=== PATIENT | male | born 1970 | race African-American/Black ===

== ENCOUNTER 2017-05-10 08:05 | Inpatient (IN) | payer MEDICAID, OTHER ==
[2017-05-10] MEDS: SOD CHLORIDE 0.9% 1,000 ML IV (08:40)
[2017-05-10 08:58] LABS: ADD MAN DIFF? NO
[2017-05-10 09:11] LABS: WHITE BLOOD COUNT 4.2 10^3/ul (4.8-10.8)
[2017-05-10 09:11] LABS: BASOPHILS % 0.5 % (0.0-2.0); EOSINOPHILS # 0.1 10^3/ul (0.0-0.5); EOSINOPHILS % 2.1 % (0.0-7.0); HEMATOCRIT 31.2 % (42.0-52.0); HEMOGLOBIN 10.8 g/dl (14.0-18.0); LYMPHOCYTES # 0.8 10^3/ul (0.8-2.9); LYMPHOCYTES % 19.5 % (15.0-51.0); MEAN CORPUSCULAR HEMOGLOBIN 25.2 pg (29.0-33.0); MEAN CORPUSCULAR HGB CONC 34.6 g/dl (32.0-37.0); MEAN CORPUSCULAR VOLUME 72.9 fl (82.0-101.0); MEAN PLATELET VOLUME 10.1 fl (7.4-10.4); MONOCYTE # 0.5 10^3/ul (0.3-0.9); MONOCYTES % 12.1 % (0.0-11.0); NEUTROPHIL # 2.7 10^3/ul (1.6-7.5); NEUTROPHILS % 65.1 % (39.0-77.0); PLATELET COUNT 361 10^3/UL (140-415); RED BLOOD COUNT 4.28 10^6/ul (4.70-6.10); RED CELL DISTRIBUTION WIDTH 13.7 % (11.5-14.5)
[2017-05-10 09:26] LABS: INR 1.08; PROTIME 14.1 Sec (11.9-14.9); PT RATIO 1.1
[2017-05-10 09:27] LABS: PARTIAL THROMBOPLASTIN TIME 29.6 Sec (25.0-35.0)
[2017-05-10 09:31] LABS: ALANINE AMINOTRANSFERASE 32 IU/L (13-69); ALBUMIN 3.5 g/dl (3.3-4.9); ALBUMIN/GLOBULIN RATIO 0.66; ALKALINE PHOSPHATASE 134 IU/L (42-121); ANION GAP 13 (8-16); ASPARTATE AMINO TRANSFERASE 52 IU/L (15-46); BILIRUBIN,INDIRECT 0.2 mg/dl (0-1.1); BILIRUBIN,TOTAL 0.2 mg/dl (0.2-1.3); BLOOD UREA NITROGEN 9 mg/dl (7-20); CALCIUM 8.6 mg/dl (8.4-10.2); CARBON DIOXIDE 26 mmol/L (21-31); CHLORIDE 98 mmol/L (97-110); CREATININE 0.66 mg/dl (0.61-1.24); GLUCOSE 93 mg/dl (70-220); POTASSIUM 5.5 mmol/L (3.5-5.1); SODIUM 131 mmol/L (135-144); TOTAL PROTEIN 8.8 g/dl (6.1-8.1)
[2017-05-10 09:41] LABS: B-TYPE NATRIURETIC PEPTIDE 150 PG/ML (0-125)
[2017-05-10 09:45] LABS: TROPONIN-I < 0.012 ng/ml (0.00-0.12)
[2017-05-10 10:07] LABS: D-DIMER 2471.15 ng/ml (<460)
[2017-05-10 10:29] LABS: ADD UMIC NO; UR ASCORBIC ACID 40 mg/dL (NEGATIVE); UR BILIRUBIN (Dip) NEGATIVE (NEGATIVE); UR BLOOD (Dip) NEGATIVE (NEGATIVE); UR CLARITY CLEAR (CLEAR); UR COLOR YELLOW (YELLOW); UR GLUCOSE (Dip) NEGATIVE (NEGATIVE); UR KETONES (Dip) NEGATIVE (NEGATIVE); UR LEUKOCYTE ESTERASE (Dip) NEGATIVE Leu/ul (NEGATIVE); UR NITRITE (Dip) NEGATIVE (NEGATIVE); UR SPECIFIC GRAVITY (Dip) 1.019 (1.003-1.030); UR TOTAL PROTEIN (Dip) NEGATIVE (NEGATIVE); UR UROBILINOGEN (Dip) 1+ mg/dL (NEGATIVE)
[2017-05-10] MEDS: SOD CHLORIDE 0.9% 100 ML (11:00)
[2017-05-10] MEDS: IOHEXOL 100 ML (11:00)
[2017-05-10 11:16] LABS: ALANINE AMINOTRANSFERASE 36 IU/L (13-69); ALBUMIN 3.1 g/dl (3.3-4.9); ALBUMIN/GLOBULIN RATIO 0.65; ALKALINE PHOSPHATASE 146 IU/L (42-121); ANION GAP 10 (8-16); ASPARTATE AMINO TRANSFERASE 50 IU/L (15-46); BILIRUBIN,INDIRECT 0.1 mg/dl (0-1.1); BILIRUBIN,TOTAL 0.1 mg/dl (0.2-1.3); BLOOD UREA NITROGEN 8 mg/dl (7-20); CALCIUM 8.3 mg/dl (8.4-10.2); CARBON DIOXIDE 24 mmol/L (21-31); CHLORIDE 102 mmol/L (97-110); CREATININE 0.62 mg/dl (0.61-1.24); GLUCOSE 91 mg/dl (70-220); POTASSIUM 4.5 mmol/L (3.5-5.1); TOTAL PROTEIN 7.8 g/dl (6.1-8.1)
[2017-05-10 11:19] LABS: SODIUM 131 mmol/L (135-144)
[2017-05-10] MEDS: CEFTRIAXONE 1 GM/50 ML (PMX) 50 ML IVPB (11:39)
[2017-05-10] MEDS: AZITHROMYCIN 500MG/NS (PMX) 250 ML IVPB (12:28)
[2017-05-10] MEDS ORDERED: ONDANSETRON 4 MG INJ IV ×2 (12:30→13:30)
[2017-05-10] MEDS ORDERED: ACETAMINOPHEN 325 MG TAB PO (12:30)
[2017-05-10] MEDS ORDERED: VANCOMYCIN IV PER PHARMACY XX (13:30)
[2017-05-10] MEDS ORDERED: LABETALOL HCL 20MG INJ IV (13:30)
[2017-05-10] MEDS ORDERED: ALBUTEROL/IPRATROPIUM (NEB) 3 ML AMP HHN (13:30)
[2017-05-10] MEDS ORDERED: BISACODYL (EC) 5 MG TAB PO (13:30)
[2017-05-10] MEDS ORDERED: NACL 0.9% 3 ML SYG IV (13:30)
[2017-05-10] MEDS ORDERED: LORAZEPAM 0.5 MG TAB PO (13:30)
[2017-05-10] MEDS ORDERED: morphine 2 MG INJ IV (13:30)
[2017-05-10] MEDS: ALBUTEROL/IPRATROPIUM (NEB) 3 ML AMP HHN ×2 (14:00→20:57)
[2017-05-10] MEDS: VANCOMYCIN 1.5 GM in DEXTROSE 5% 500 ML IVPB (15:54)
[2017-05-10 17:29] LABS: LACTIC ACID 1.2 mmol/L (0.5-2.0)
[2017-05-10 17:30] LABS: POTASSIUM 4.2 mmol/L (3.5-5.1)
[2017-05-10] MEDS: SOD CHLORIDE 0.45% 1,000 ML IV (17:56)
[2017-05-10] MEDS: PIPER-TAZO 3.375 GM IV (PMX) 100 ML IVPB ×2 (18:07→23:38)
[2017-05-10] MEDS: FAMOTIDINE 20 MG INJ IV (20:52)
[2017-05-11] MEDS: VANCOMYCIN 1.25 GM in SOD CHLORIDE 0.45% 250 ML IVPB ×2 (04:31→16:58)
[2017-05-11 06:01] LABS: ADD MAN DIFF? NO
[2017-05-11 06:03] LABS: WHITE BLOOD COUNT 4.1 10^3/ul (4.8-10.8)
[2017-05-11 06:03] LABS: BASOPHILS % 0.5 % (0.0-2.0); EOSINOPHILS # 0.1 10^3/ul (0.0-0.5); EOSINOPHILS % 1.5 % (0.0-7.0); HEMATOCRIT 31.4 % (42.0-52.0); HEMOGLOBIN 11.1 g/dl (14.0-18.0); LYMPHOCYTES # 0.9 10^3/ul (0.8-2.9); LYMPHOCYTES % 20.8 % (15.0-51.0); MEAN CORPUSCULAR HEMOGLOBIN 25.6 pg (29.0-33.0); MEAN CORPUSCULAR HGB CONC 35.4 g/dl (32.0-37.0); MEAN CORPUSCULAR VOLUME 72.4 fl (82.0-101.0); MEAN PLATELET VOLUME 9.5 fl (7.4-10.4); MONOCYTE # 0.5 10^3/ul (0.3-0.9); NEUTROPHIL # 2.6 10^3/ul (1.6-7.5); PLATELET COUNT 410 10^3/UL (140-415); RED BLOOD COUNT 4.34 10^6/ul (4.70-6.10); RED CELL DISTRIBUTION WIDTH 13.4 % (11.5-14.5)
[2017-05-11 06:36] LABS: ALANINE AMINOTRANSFERASE 35 IU/L (13-69); ALBUMIN/GLOBULIN RATIO 0.62; ALKALINE PHOSPHATASE 139 IU/L (42-121); ANION GAP 12 (8-16); ASPARTATE AMINO TRANSFERASE 34 IU/L (15-46); BILIRUBIN,INDIRECT 0.1 mg/dl (0-1.1); BILIRUBIN,TOTAL 0.1 mg/dl (0.2-1.3); BLOOD UREA NITROGEN 9 mg/dl (7-20); CALCIUM 8.2 mg/dl (8.4-10.2); CARBON DIOXIDE 25 mmol/L (21-31); CHLORIDE 99 mmol/L (97-110); CREATININE 0.81 mg/dl (0.61-1.24); GLUCOSE 93 mg/dl (70-220); MAGNESIUM 1.8 mg/dl (1.7-2.5); POTASSIUM 4.2 mmol/L (3.5-5.1); SODIUM 132 mmol/L (135-144); TOTAL PROTEIN 7.8 g/dl (6.1-8.1)
[2017-05-11] MEDS: PIPER-TAZO 3.375 GM IV (PMX) 100 ML IVPB ×4 (07:39→23:54)
[2017-05-11] MEDS: FAMOTIDINE 20 MG INJ IV ×2 (08:32→20:40)
[2017-05-11] MEDS: ALBUTEROL/IPRATROPIUM (NEB) 3 ML AMP HHN ×3 (09:27→19:53)
[2017-05-11] MEDS: ACETAMINOPHEN 325 MG TAB PO (15:34)
[2017-05-11] MEDS: LEVOFLOXACIN 500MG/D5W (PMX) 100 ML IVPB (18:00)
[2017-05-12 03:52] LABS: ADD MAN DIFF? NO
[2017-05-12] MEDS: VANCOMYCIN 1.25 GM in SOD CHLORIDE 0.45% 250 ML IVPB (04:02)
[2017-05-12 04:04] LABS: WHITE BLOOD COUNT 3.6 10^3/ul (4.8-10.8)
[2017-05-12 04:04] LABS: ABNORMAL IP MESSAGE 1; BASOPHILS % 0.6 % (0.0-2.0); EOSINOPHILS # 0.1 10^3/ul (0.0-0.5); EOSINOPHILS % 1.9 % (0.0-7.0); HEMATOCRIT 29.4 % (42.0-52.0); HEMOGLOBIN 10.4 g/dl (14.0-18.0); LYMPHOCYTES # 0.6 10^3/ul (0.8-2.9); LYMPHOCYTES % 16.3 % (15.0-51.0); MEAN CORPUSCULAR HEMOGLOBIN 25.3 pg (29.0-33.0); MEAN CORPUSCULAR HGB CONC 35.4 g/dl (32.0-37.0); MEAN CORPUSCULAR VOLUME 71.5 fl (82.0-101.0); MEAN PLATELET VOLUME 9.6 fl (7.4-10.4); MONOCYTE # 0.5 10^3/ul (0.3-0.9); MONOCYTES % 13.3 % (0.0-11.0); NEUTROPHIL # 2.4 10^3/ul (1.6-7.5); NEUTROPHILS % 67.1 % (39.0-77.0); PLATELET COUNT 415 10^3/UL (140-415); POSITIVE DIFF @See below; RED BLOOD COUNT 4.11 10^6/ul (4.70-6.10); RED CELL DISTRIBUTION WIDTH 13.9 % (11.5-14.5)
[2017-05-12] MEDS: HYDROCODONE/APAP (5/325) TAB PO ×3 (04:09→12:03)
[2017-05-12 04:22] LABS: ANION GAP 10 (8-16); BLOOD UREA NITROGEN 6 mg/dl (7-20); CALCIUM 8.2 mg/dl (8.4-10.2); CARBON DIOXIDE 28 mmol/L (21-31); CHLORIDE 99 mmol/L (97-110); CREATININE 0.78 mg/dl (0.61-1.24); GLUCOSE 118 mg/dl (70-220); POTASSIUM 3.9 mmol/L (3.5-5.1); SODIUM 133 mmol/L (135-144)
[2017-05-12 04:26] LABS: VANCOMYCIN,TROUGH 10.6 ug/ml (10.0-20.0)
[2017-05-12] MEDS: ALBUTEROL/IPRATROPIUM (NEB) 3 ML AMP HHN ×3 (07:40→20:58)
[2017-05-12] MEDS: FAMOTIDINE 20 MG INJ IV (09:00)
[2017-05-12] MEDS: PIPER-TAZO 3.375 GM IV (PMX) 100 ML IVPB ×2 (12:04→18:00)
[2017-05-12] MEDS: VANCOMYCIN 1.5 GM in DEXTROSE 5% 500 ML IVPB (18:02)
[2017-05-12] MEDS: ACETAMINOPHEN 325 MG TAB PO ×2 (23:10)
[2017-05-13] MEDS ORDERED: AL HYDROX/MG HYDROX/SIMETH 30 ML CUP PO
[2017-05-13] MEDS: PIPER-TAZO 3.375 GM IV (PMX) 100 ML IVPB ×2 (00:17→05:06)
[2017-05-13] MEDS: VANCOMYCIN 1.5 GM in DEXTROSE 5% 500 ML IVPB ×2 (05:43→16:58)
[2017-05-13] MEDS ORDERED: LEVOFLOXACIN 500 MG TAB PO (06:00)
[2017-05-13 06:11] LABS: ADD MAN DIFF? NO
[2017-05-13 06:16] LABS: BASOPHILS % 0.5 % (0.0-2.0); EOSINOPHILS # 0.1 10^3/ul (0.0-0.5); EOSINOPHILS % 2.8 % (0.0-7.0); HEMATOCRIT 29.2 % (42.0-52.0); HEMOGLOBIN 10.2 g/dl (14.0-18.0); LYMPHOCYTES # 0.7 10^3/ul (0.8-2.9); LYMPHOCYTES % 16.5 % (15.0-51.0); MEAN CORPUSCULAR HEMOGLOBIN 24.9 pg (29.0-33.0); MEAN CORPUSCULAR HGB CONC 34.9 g/dl (32.0-37.0); MEAN CORPUSCULAR VOLUME 71.4 fl (82.0-101.0); MEAN PLATELET VOLUME 9.8 fl (7.4-10.4); MONOCYTE # 0.5 10^3/ul (0.3-0.9); MONOCYTES % 11.5 % (0.0-11.0); NEUTROPHIL # 2.7 10^3/ul (1.6-7.5); NEUTROPHILS % 67.7 % (39.0-77.0); PLATELET COUNT 381 10^3/UL (140-415); RED BLOOD COUNT 4.09 10^6/ul (4.70-6.10); RED CELL DISTRIBUTION WIDTH 13.4 % (11.5-14.5)
[2017-05-13 06:16] LABS: WHITE BLOOD COUNT 3.9 10^3/ul (4.8-10.8)
[2017-05-13 06:46] LABS: ANION GAP 10 (8-16); BLOOD UREA NITROGEN 6 mg/dl (7-20); CALCIUM 8.5 mg/dl (8.4-10.2); CARBON DIOXIDE 25 mmol/L (21-31); CHLORIDE 103 mmol/L (97-110); CREATININE 0.71 mg/dl (0.61-1.24); GLUCOSE 78 mg/dl (70-220); POTASSIUM 4.1 mmol/L (3.5-5.1); SODIUM 134 mmol/L (135-144)
[2017-05-13] MEDS: ALBUTEROL/IPRATROPIUM (NEB) 3 ML AMP HHN ×3 (08:00→20:32)
[2017-05-13] MEDS: FAMOTIDINE 20 MG TAB PO (09:00)
[2017-05-13] MEDS: DIPHENHYDRAMINE 50 MG INJ (09:40)
[2017-05-13] MEDS: LIDOCAINE 1% (MDV) 20 ML INJ (09:49)
[2017-05-13] MEDS: FENTAnyl 50 MCG/ML VIAL (09:50)
[2017-05-13 11:03] LABS: FLUID GLUCOSE 24 mg/dl; FLUID TYPE THORACENTESIS FLUID
[2017-05-13 11:12] LABS: FLUID AMYLASE 74 U/L; FLUID TYPE THORACENTESIS FLUID
[2017-05-13 11:51] LABS: FLD MN% 58.6 %; FLD PMN% 41.4 %; FLD RBC 0 /uL; FLD WBC 162 /cmm
[2017-05-13 11:52] LABS: FLD TYPE PLEURAL
[2017-05-13 11:52] LABS: FLD CLARITY HAZY; FLD COLOR YELLOW
[2017-05-13 12:40] LABS: FLUID TOTAL PROTEIN 7.1 g/dl; FLUID TYPE THORACENTESIS FLUID
[2017-05-13 12:50] LABS: FLUID LD 8907 U/L
[2017-05-13] MEDS: PIPER-TAZO 3.375 GM IV (PMX) 50 ML IVPB ×3 (13:59→23:19)
[2017-05-13] MEDS: HYDROCODONE/APAP (5/325) TAB PO ×2 (16:59→23:18)
[2017-05-14 03:25] LABS: ADD MAN DIFF? NO
[2017-05-14 03:26] LABS: BASOPHILS % 0.8 % (0.0-2.0); EOSINOPHILS # 0.2 10^3/ul (0.0-0.5); EOSINOPHILS % 4.5 % (0.0-7.0); HEMATOCRIT 31.6 % (42.0-52.0); HEMOGLOBIN 11.3 g/dl (14.0-18.0); LYMPHOCYTES # 0.6 10^3/ul (0.8-2.9); LYMPHOCYTES % 15.1 % (15.0-51.0); MEAN CORPUSCULAR HEMOGLOBIN 25.3 pg (29.0-33.0); MEAN CORPUSCULAR HGB CONC 35.8 g/dl (32.0-37.0); MEAN CORPUSCULAR VOLUME 70.9 fl (82.0-101.0); MEAN PLATELET VOLUME 9.3 fl (7.4-10.4); MONOCYTE # 0.4 10^3/ul (0.3-0.9); MONOCYTES % 9.5 % (0.0-11.0); NEUTROPHIL # 2.8 10^3/ul (1.6-7.5); NEUTROPHILS % 69.6 % (39.0-77.0); PLATELET COUNT 424 10^3/UL (140-415); RED BLOOD COUNT 4.46 10^6/ul (4.70-6.10); RED CELL DISTRIBUTION WIDTH 13.5 % (11.5-14.5)
[2017-05-14 03:55] LABS: ANION GAP 11 (8-16); BLOOD UREA NITROGEN 7 mg/dl (7-20); CALCIUM 8.8 mg/dl (8.4-10.2); CARBON DIOXIDE 25 mmol/L (21-31); CHLORIDE 99 mmol/L (97-110); CREATININE 0.84 mg/dl (0.61-1.24); GLUCOSE 100 mg/dl (70-220); MAGNESIUM 1.9 mg/dl (1.7-2.5); PHOSPHORUS 3.8 mg/dl (2.5-4.9); POTASSIUM 4.1 mmol/L (3.5-5.1); SODIUM 131 mmol/L (135-144)
[2017-05-14 04:14] LABS: VANCOMYCIN,TROUGH 12.6 ug/ml (10.0-20.0)
[2017-05-14] MEDS: VANCOMYCIN 1.5 GM in DEXTROSE 5% 500 ML IVPB ×2 (04:23→18:37)
[2017-05-14] MEDS: PIPER-TAZO 3.375 GM IV (PMX) 50 ML IVPB ×2 (06:08→12:29)
[2017-05-14] MEDS: HYDROCODONE/APAP (5/325) TAB PO ×2 (06:08→23:44)
[2017-05-14] MEDS: ALBUTEROL/IPRATROPIUM (NEB) 3 ML AMP HHN ×3 (07:34→20:00)
[2017-05-14] MEDS: FAMOTIDINE 20 MG TAB PO (08:12)
[2017-05-14] MEDS: morphine 2 MG INJ IV (10:55)
[2017-05-14] MEDS: PIPER-TAZO 3.375 GM IV (PMX) 100 ML IVPB ×2 (17:58→23:43)
[2017-05-14 18:49] LABS: OSMOLALITY 261 mOsm/kg (280-295)
[2017-05-15 02:59] LABS: SODIUM,URINE RANDOM 39 mmol/L (30-90)
[2017-05-15] MEDS: VANCOMYCIN 1.5 GM in DEXTROSE 5% 500 ML IVPB ×2 (03:32→16:17)
[2017-05-15] MEDS: HYDROCODONE/APAP (5/325) TAB PO ×2 (05:39→14:44)
[2017-05-15] MEDS: PIPER-TAZO 3.375 GM IV (PMX) 100 ML IVPB ×4 (06:35→23:51)
[2017-05-15 07:48] LABS: OSMOLALITY,URINE 233 mOsm/kg (250-1200)
[2017-05-15] MEDS: ALBUTEROL/IPRATROPIUM (NEB) 3 ML AMP HHN ×3 (08:13→19:27)
[2017-05-15] MEDS: FAMOTIDINE 20 MG TAB PO (09:26)
[2017-05-15 15:58] LABS: HIV 1&2 ANTIBODY REACTIVE (NEGATIVE)
[2017-05-15] MEDS: LORAZEPAM 1 MG TAB PO (20:13)
[2017-05-16] MEDS: HYDROCODONE/APAP (5/325) TAB PO (01:02)
[2017-05-16] MEDS: VANCOMYCIN 1.5 GM in DEXTROSE 5% 500 ML IVPB (03:30)
[2017-05-16] MEDS: LORAZEPAM 1 MG TAB PO (04:34)
[2017-05-16 06:13] LABS: ADD MAN DIFF? NO
[2017-05-16 06:18] LABS: WHITE BLOOD COUNT 5.2 10^3/ul (4.8-10.8)
[2017-05-16 06:18] LABS: BASOPHILS % 0.6 % (0.0-2.0); EOSINOPHILS # 0.2 10^3/ul (0.0-0.5); EOSINOPHILS % 3.7 % (0.0-7.0); HEMATOCRIT 29.3 % (42.0-52.0); HEMOGLOBIN 10.3 g/dl (14.0-18.0); LYMPHOCYTES # 0.7 10^3/ul (0.8-2.9); LYMPHOCYTES % 13.4 % (15.0-51.0); MEAN CORPUSCULAR HEMOGLOBIN 24.8 pg (29.0-33.0); MEAN CORPUSCULAR HGB CONC 35.2 g/dl (32.0-37.0); MEAN CORPUSCULAR VOLUME 70.4 fl (82.0-101.0); MEAN PLATELET VOLUME 9.6 fl (7.4-10.4); MONOCYTE # 0.7 10^3/ul (0.3-0.9); MONOCYTES % 12.8 % (0.0-11.0); NEUTROPHIL # 3.6 10^3/ul (1.6-7.5); NEUTROPHILS % 69.1 % (39.0-77.0); PLATELET COUNT 376 10^3/UL (140-415); RED BLOOD COUNT 4.16 10^6/ul (4.70-6.10)
[2017-05-16] MEDS: PIPER-TAZO 3.375 GM IV (PMX) 100 ML IVPB ×2 (06:49→11:40)
[2017-05-16 06:55] LABS: BLOOD UREA NITROGEN 9 mg/dl (7-20)
[2017-05-16 06:55] LABS: CREATININE 0.87 mg/dl (0.61-1.24)
[2017-05-16 06:57] LABS: ANION GAP 10 (8-16); BLOOD UREA NITROGEN 9 mg/dl (7-20); CALCIUM 8.7 mg/dl (8.4-10.2); CARBON DIOXIDE 26 mmol/L (21-31); CHLORIDE 100 mmol/L (97-110); CREATININE 0.94 mg/dl (0.61-1.24); GLUCOSE 108 mg/dl (70-220); PHOSPHORUS 3.5 mg/dl (2.5-4.9); POTASSIUM 3.9 mmol/L (3.5-5.1); SODIUM 132 mmol/L (135-144)
[2017-05-16] MEDS: ALBUTEROL/IPRATROPIUM (NEB) 3 ML AMP HHN ×2 (07:37→12:50)
[2017-05-16] MEDS: FAMOTIDINE 20 MG TAB PO (09:13)
[2017-05-16 12:12] LABS: LYMPHOCYTE - % CD4 (HELPER) 34 % (30-61); LYMPHOCYTE - %CD8 (SUPPRESSOR) 53 % (12-42); LYMPHOCYTE - ABSOLUTE 660 cells/uL (850-3900); LYMPHOCYTE - ABSOLUTE CD4 223 cells/uL (490-1740); LYMPHOCYTE - ABSOLUTE CD8 347 cells/uL (180-1170); LYMPHOCYTE - CD4/CD8 RATIO 0.64 (0.86-5.00)
[2017-05-19 11:56] LABS: BODY FLUID *PLEURAL FLUID
== END 2017-05-16 15:30 | disposition left against medical advice (07) | DRG 974 ==
LOC: MS2 05-13 01:08 → E/R 08:05 → MS3 12:11
PROVIDERS: Internal Medicine
PROC: 0W9B30Z Drainage of Left Pleural Cavity with Drainage Device, Percutaneous Approach (ICD-10-PCS; principal; 2017-05-13)
DX: A41.9 Sepsis, unspecified organism (principal); J86.9 Pyothorax without fistula; B20 Human immunodeficiency virus [HIV] disease; J96.01 Acute respiratory failure with hypoxia; J90 Pleural effusion, not elsewhere classified; J18.9 Pneumonia, unspecified organism; E87.1 Hypo-osmolality and hyponatremia; E86.0 Dehydration; R55 Syncope and collapse; F12.90 Cannabis use, unspecified, uncomplicated; Y95 Nosocomial condition
CPT/HCPCS: 36589; 70450; 71045; 71275; 75989; 80048; 80053; 80202; 81003; 82150; 82533; 82565; 82945; 83605; 83615; 83735; 83880; 83930; 83935; 83986; 84100; 84132; 84157; 84300; 84443; 84484; 84520; 85025; 85378; 85610; 85730; 86360; 86701; 86703; 87040; 87070; 87075; 87102; 87116; 87536; 88104; 88305; 89051; 93005; 93306; 94640; 94664; 96374; 96375; 99285-25